=== PATIENT | male | born 1980 | race Two or more races ===

== ENCOUNTER 2018-12-17 19:12 | Emergency (ER) | payer SELFPAY ==
[~2018-12-17] VITALS: Ht 177.8 cm; Wt 88.5 kg
[2018-12-17] MEDS ORDERED: KETOROLAC TROMETHAMINE INJ 30 MG/ML VIAL ONE (20:16)
[2018-12-17] MEDS ORDERED: OLANZAPINE 10 MG VIAL IM ONE (20:17)
[2018-12-17] MEDS ORDERED: TDAP [DIPH/PERTUSSIS/TET] 0.5 ML VIAL IM ONE (20:17)
[2018-12-17] MEDS: KETOROLAC TROMETHAMINE INJ 60 MG/2 ML VIAL IM ONE (20:40)
[2018-12-17] MEDS: OLANZAPINE 10 MG VIAL IM ONE (20:43)
[2018-12-17] MEDS: TDAP [DIPH/PERTUSSIS/TET] 0.5 ML VIAL IM ONE (20:45)
--- NOTE | 2018-12-17 20:47 | NUR ---
PT BIBRA FOR GLF, LACERATION ON FOREHEAD. PT AAOX3, VSS. DENIES CP, SOB, DIZZINESS, N/V, WEAKNESS @ THIS TIME. SEEN & EVAL'D BY BRODERICK PHELAN. MEDICATED ORDERED, PT TYLER WELL. PT EATING A SANDWICH, NO ACUTE DISTRESS NOTED @ THIS TIME.
--- NOTE | 2018-12-18 04:25 | NUR ---
PT APPEARS TO BE MORE ALERT AT THIS TIME, NOTED IN PAIN AT THIS TIME, DR. OJEDA AWARE, PT EARLIER REFUSED XR'S MULTIPLE TIMES UNDER CARE OF GOLDIE ZAIDI, PT WILLING TO DO XRAYS AT THIS TIME.
--- NOTE | 2018-12-18 05:33 | NUR ---
PT CLEARED FOR DISCHARGE PER DR. OJEDA. PT PROVIDED WITH RIGHT ARM SLING, PT REFUSED LEFT ARM SLING, PT REFUSED SPLINT CARE, RISK AND BENEFITS EXPLAINED X3. PT STRONGLT REFUSED DR. OJEDA AWARE. PT LEFT WITHOUT DISCHARGE INSTRUCTIONS. PT AMBULATORY WITH STEADY GAIT.
[2018-12-18 05:35] VITALS: BP 110/58
== END 2018-12-18 05:35 | disposition home or self-care (01) ==
LOC: ER 19:17
DX: S01.112A Laceration without foreign body of left eyelid and periocular area, initial encounter (principal); S50.11XA Contusion of right forearm, initial encounter; F15.10 Other stimulant abuse, uncomplicated; F17.200 Nicotine dependence, unspecified, uncomplicated; W18.39XA Other fall on same level, initial encounter; Y93.89 Activity, other specified; Y92.89 Other specified places as the place of occurrence of the external cause; Y99.8 Other external cause status
CPT/HCPCS: 12011; 73080; 73090; 90471; 90715; 96372 ×2; 99283; 99406; A6403; J1885; J3490